=== PATIENT | male | born 1970 | race Caucasian/White ===

== ENCOUNTER → 2019-12-19 | Outpatient (CLI) | payer BC ==
[~2019-12-19] MED LIST: ALTACE 1.25MG1.25 MG PO; HCTZ12.5TAB PO; NIACIN 100100 MG/TAB PO
== END ==
LOC: COL.CARD 11:59
DX: R00.2 Palpitations (principal)

== ENCOUNTER → 2021-01-09 | Outpatient (CLI) | payer BC ==
[~2021-01-09] MED LIST changes: +ALTACE 10MG TAB10 MG PO; +FLEXERIL 1010 MG/TAB PO; +NORCO 325 MG-51 TAB PO; +TOPROL XL 25MG25 MG PO
== END ==
LOC: COL.PUL 12:41
DX: R06.02 Shortness of breath (principal)

== ENCOUNTER → 2021-07-08 | Outpatient (CLI) | payer BC | LOC: COL.PUL 12:40 | DX: R94.2 Abnormal results of pulmonary function studies (principal) | CPT/HCPCS: J7674 ==